=== PATIENT | female | born 1980 | race Caucasian/White ===

== ENCOUNTER 2018-05-04 18:07 | Day surgery (SDC) ==
[2018-05-04 21:08] LABS: BASO# 0.01 X1000 (0.0-0.2); BASO% 0.1 % (0.0-0.8); EOS# 0.01 X1000 (0.0-0.7); EOS% 0.1 % (0.0-10.0); HEMOGLOBIN 14.8 g/dL (12.0-16.0); IMM GRAN# 0.04 X1000 (0.0-0.04); IMM GRAN% 0.3 % (0.0-0.5); LYMPH# 1.68 X1000 (1.2-3.4); LYMPH% 12.2 % (20.5-51.1); MCH 29.8 PG (27-31); MCHC 33.6 g/dL (33-37); MCV 88.7 FL (81-99); MONO# 1.36 X1000 (0.11-0.59); MONO% 9.9 % (1.7-9.3); MPV 11.1 FL (7.4-10.4); NEUT# 10.63 X1000 (1.4-6.5); NEUT% 77.4 % (42.2-75.2); PLT 182 X1000 (130-400); RBC 4.96 XMIL (4.2-5.4); RDW 11.9 % (11.5-14.5); WBC 13.73 X1000 (4.8-10.8)
[2018-05-04 21:17] LABS: URINE SOURCE CLEAN CATCH
[2018-05-04 21:26] LABS: AGAP 14; ALB/GLOB RATIO 2.1; ALBUMIN 4.8 g/dL (3.5-5.0); ALKALINE PHOSPHATASE 67 U/L (32-104); BUN 8 mg/dL (8-22); CALCIUM 8.3 mg/dL (8.8-10.2); CHLORIDE 98 mmol/L (98-107); COSMO 270; CREATININE 0.6 mg/dL (0.5-0.9); ESTIMATED GFR > 60; GLUCOSE 87 mg/dL (70-104); GOT 12 U/L (10-30); GPT 9 U/L (10-36); LIPASE 16 U/L (13-60); POTASSIUM 3.9 mmol/L (3.5-5.1); SODIUM 136 mmol/L (136-145); TCO2 24 mmol/L (25-35); TOTAL BILIRUBIN 0.87 mg/dL (0.20-1.00); TOTAL PROTEIN 7.1 g/dL (6.3-8.3)
[2018-05-04 21:27] LABS: BILIRUBIN URINE NEGATIVE (NEGATIVE); BLOOD URINE MODERATE (NEGATIVE); COLOR YELLOW; GLUCOSE URINE NEGATIVE (NEGATIVE); KETONE URINE 100 mg/dL (NEGATIVE); LEUKOCYTES URINE NEGATIVE (NEGATIVE); NITRITE URINE NEGATIVE (NEGATIVE); PH URINE 5.5; PROTEIN URINE NEGATIVE (NEGATIVE); SP GRAVITY URINE 1.009; TURBIDITY URINE CLEAR (CLEAR); UROBILINOGEN URINE NORMAL (NORMAL)
[2018-05-04 21:28] LABS: UR EPITHELIAL CELLS <10 /HPF (<10); URINE BACTERIA NEGATIVE /HPF; URINE RBC <10 /HPF (<10); URINE WBC <10 /HPF (<10)
[2018-05-04] MEDS ORDERED: MORPHINE IV ONE (21:47)
[2018-05-04] MEDS ORDERED: ZOFRAN IV ONE (21:48)
--- NOTE | 2018-05-04 22:12 | PROVIDER DOCUMENTATION ---
This chart was entered by Ladi Huston Scribe, acting as scribe for Harlan Ochoa MD. HPI-Abdominal Pain/GI Problem - General Chief Complaint: Abdominal Pain Stated Complaint: ABD. PAIN Time Seen by Provider: 05/04/18 18:45 Source: patient Allergies/Adverse Reactions: Patient Allergies Allergy/AdvReac Type Severity Reaction Status Date / Time clarithromycin [From Biaxin] Allergy NAUSEA/VOMI Verified 01/22/14 11:27 TING Home Medications: Home Medication List Medication Instructions Recorded Confirmed Last Taken Type Hydrocodone/APAP 5 mg/325 mg 1 each PO Q4H PRN PRN #0 tablet 01/22/14 Unknown Rx [[place]-5] - History of Present Illness-ABD Nature of Presenting Problems: 37 yof presents to ed w/co abd pain for 2 days. pt went to her pcp, dr. gates, and thought pt was having constipation and gave pt linzess and sent for kub and was it was normal. pt states that pcp said if pain continues to come to er and get ct scan. pt states she had chills from pain but went away. pt has no fever, dizziness, or pain when urinating. Abdominal Pain Onset Location: reports: periumbilical, suprapubic Quality of Pain: reports: sharp Severity in ED: reports: mild Onset/Duration: reports: 2 days ago Timing: reports: still present Review of Systems - Adult - REVIEW OF SYSTEMS - ADULT Constitutional: reports: no symptoms reported Eyes: reports: no symptoms reported Ears, Nose, Mouth & Throat: reports: no symptoms reported Cardiovascular: reports: no symptoms reported Respiratory: reports: no symptoms reported Gastrointestinal: reports: see HPI, abdominal pain (suprapubic and preumbilical) . denies: diarrhea, difficulty swallowing, nausea, vomiting Genitourinary: reports: no symptoms reported Musculoskeletal: reports: no symptoms reported Integumentary: reports: no symptoms reported Neurological: reports: no symptoms reported Psychiatric: reports: no symptoms reported Endocrine: reports: no symptoms reported Hematologic/Lymphatic: reports: no symptoms reported Allergic/Immunologic: reports: no symptoms reported All Other Systems: Reviewed and Negative Past History - Adult - PAST MEDICAL HISTORY-ADULT Review of Records: reports: Old Records Reviewed, Nursing Assessment Review, Medications Reviewed, Social history reviewed & non-contributory. Major Childhood Illnesses: reports: denies history Cardiovascular: reports: denies history Respiratory: reports: denies history Gastrointestinal: reports: denies history Obstetrical/Gynecological: reports: denies history Genitourinary: reports: denies history Musculoskeletal: reports: denies history Neurological: reports: denies history Endocrine/Immune: reports: denies history Other Conditions: reports: denies history - PRIOR SURGERIES/PROCEDURES Surgical/Procedure History: reports: hysterectomy (partial), tonsillectomy, other (kidney sx when a child) - IMMUNIZATION STATUS Childhood Immunizations: See Nurse Assessment Flu Vaccine: See Nurse Assessment - FAMILY HISTORY Family History: reviewed, not pertinent - SOCIAL HISTORY Smoking: non-smoker Substance Use: alcohol Alcohol Use Frequency: rarely Physical Exam-General - PHYSICAL EXAM-ADULT Initial Vital Signs Reviewed: Yes - CONSTITUTIONAL General Appearance: alert, mild distress. negative: severe distress, lethargic, slow to respond - EYES Eyes: PERRL/EOMI - HEAD, EARS, NOSE, MOUTH & THROAT HENMT: normocephalic/atraumatic, moist mucous membranes, normal ENT inspection - NECK Neck: non-tender, full range of motion, supple, normal inspection - RESPIRATORY Respiratory: chest non-tender, lungs clear, normal breath sounds - CARDIOVASCULAR Cardiovascular: normal peripheral pulses, regular rate, rhythm - GASTROINTESTINAL (ABDOMEN) Abdominal Exam: normal bowel sounds, soft, tenderness (suprapubic and preumbilical). negative: non tender, guarding, rigid, rebound - LYMPHATIC Lymphatic: no adenopathy - MUSCULOSKELETAL Back Exam: normal inspection, no CVA tenderness, no vertebral tenderness Extremity: normal range of motion, non-tender, normal inspection - SKIN Integumentary: normal color, normal turgor, warm/dry - NEUROLOGIC Neurologic: clinical abstractor II-XII nml as tested, grossly normal, no motor/sensory deficits - PSYCHIATRIC Psych/Mental Status: normal mood/affect, normal thought content, normal thought process, oriented x 3 Progress - PLAN OF CARE/RESULTS Progress/Plan/Lab Results: Vital Signs - 8 hr 05/04/18 18:22 Temperature 98.2 F Pulse Rate 81 Respiratory Rate 18 Blood Pressure 117/83 O2 Sat by Pulse Oximetry 97 Laboratory Results - last 24 hr 05/04/18 05/04/18 05/04/18 20:51 20:51 21:01 WBC 13.73 H RBC 4.96 Hgb 14.8 Hct 44.0 MCV 88.7 MCH 29.8 MCHC 33.6 RDW Std Deviation 11.9 Plt Count 182 MPV 11.1 H Immature Gran % (Auto) 0.3 Neut % (Auto) 77.4 H Lymph % (Auto) 12.2 L [place] % (Auto) 9.9 H Eos % (Auto) 0.1 Baso % (Auto) 0.1 Immature Gran # (Auto) 0.04 Neut # (Auto) 10.63 H Lymph # (Auto) 1.68 [place] # (Auto) 1.36 H Eos # (Auto) 0.01 Baso # (Auto) 0.01 Sodium 136 Potassium 3.9 Chloride 98 Carbon Dioxide 24 L Anion Gap 14 BUN 8 Creatinine 0.6 Estimated GFR/1.73 m2 > 60 BUN/Creatinine Ratio 13 Glucose 87 Calculated Osmolality 270 Calcium 8.3 L Total Bilirubin 0.87 AST 12 ALT 9 L Alkaline Phosphatase 67 Total Protein 7.1 Albumin 4.8 Globulin 2.3 Albumin/Globulin Ratio 2.1 Lipase 16 Urine Source CLEAN CATCH Urine Color YELLOW Urine Turbidity CLEAR Urine pH 5.5 Ur Specific [place] 1.009 Urine Protein NEGATIVE Ur Glucose (Stick) NEGATIVE Ur Ketones (Stick) 100 A Urine Blood MODERATE A Urine Nitrite NEGATIVE Urine Bilirubin NEGATIVE Urobilinogen Dipstick NORMAL Urine Leukocytes NEGATIVE Urine WBC (Auto) <10 Urine RBC (Auto) <10 U Epithel Cells (Auto) <10 Urine Bacteria (Auto) NEGATIVE Orders Category Date Time Status NPO Diet 05/04/18 18:25 Active CBC WITH DIFF [HEME] Stat Lab 05/04/18 20:51 Completed COMPREHENSIVE METABOLIC PANEL [CHEM] Stat Lab 05/04/18 20:51 Completed LIPASE [CHEM] Stat Lab 05/04/18 20:51 Completed URINALYSIS [URINALYSIS] Stat Lab 05/04/18 21:01 Completed Abd Pain/OB <20 weeks Stat Oth 05/04/18 18:25 Ordered Result Diagrams: 05/04/18 20:51 05/04/18 20:51 - CT/MRI 1 CT Study: Abdomen, Pelvis CT Results: acute appendicitis per radiologist report, no perforation or abscess - CONSULTS/PCP/HOSPITALIST Notification #1 *Consult/PCP/Hospitalist*: Dr. Alexandra, surgeon coke oven mason Time Discussed: 23:00 Consult Disposition: Will see in ED, Admit Departure - Departure Date of Disposition Decision: 05/04/18 Time of Disposition Decision: 23:10 DIAGNOSIS: Acute appendicitis Qualifiers: Acute appendicitis type: unspecified acute appendicitis type Qualified Code(s): K35.80 - Unspecified acute appendicitis Disposition: ADMITTED INPATIENT 09 Certified Medical Emergency: Emergent Condition: Stable Referrals and Follow-Ups: Callum Gates MD [Primary Care Provider] - - Critical Care Note This patient required my direct & personal management of CC.: No Attestation - Physician/ EFRAIN Attestation Patient care was provided by Advanced Practice Provider:: No The physician spent face to face time with patient:: Yes Advanced Practice Provider documentation review:: Supervising physician onsite and consulted in the evaluation and care of this patient. The physician did have a face to face encounter with the patient. This chart was documented by the indicated scribe, (Ladi Huston Scribe) and accurately reflects the services I performed and decisions made by me, Harlan Ochoa MD, as attested by the provider's signature.
[2018-05-04] MEDS ORDERED: ZOSYN 3.375 GM in NS 50 ML IV ONE (23:03)
--- NOTE | 2018-05-04 23:03 | Diag Imaging Result Doc PS360 ---
CT ABD/PELVIS W/IV CONT ONLY - 05/04/2018 INDICATION: abdominal pain COMPARISON: 07/16/2011 FINDINGS: The lung bases are clear and the heart size is normal. The liver, gallbladder, spleen, pancreas, adrenals, and kidneys are normal. 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 The vermiform appendix appears to be dilated, enhancing, and probably fluid-filled. This measures about 11 mm or more. There is a small amount of free fluid at the right side of the pelvis. Uterus is absent. Urinary bladder and rectum are normal. There are moderate degenerative changes of the spine. No acute or suspicious bony lesion. IMPRESSION: Acute appendicitis. Small amount of pelvic free fluid. This report was discussed with Dr. Ochoa on 05/04/2018 at 11:00 PM and was readback. This exam was performed using automated exposure control, adjustment of mA or kV according to patient size, and/or use of iterative reconstruction technique Electronically signed by Balwinder Mejia 05/04/2018 11:01 PM
[2018-05-05] MEDS ORDERED: ZOFRAN IV PRN (00:02)
[2018-05-05] MEDS ORDERED: NS 1,000 ML IV SCH (00:15)
--- NOTE | 2018-05-05 00:47 | HISTORY AND PHYSICAL ---
CHIEF COMPLAINT: Abdominal pain. HISTORY OF PRESENT ILLNESS: This is a 37-year-old female with a 2-day history of mid abdominal pain that radiates down to the lower abdomen, worsened with walking around, lessened with lying still without nausea, vomiting, or fever, but she did have some chills a day ago, that have subsided. PAST MEDICAL HISTORY: None. PAST SURGICAL HISTORY: Partial hysterectomy, tonsillectomy, and kidney surgery. ALLERGIES: Clarithromycin. HOME MEDICATIONS: None. FAMILY HISTORY: Reviewed and noncontributory. SOCIAL HISTORY: Negative for tobacco or illicit drug use. She drinks alcohol occasionally. She works as a social media marketing manager. REVIEW OF SYSTEMS: Ten systems reviewed and negative except as noted above. PHYSICAL EXAMINATION: VITAL SIGNS: Temperature 98.2 degrees, pulse 81, respirations 18, blood pressure 117/83, O2 saturation 97%. GENERAL: Well-developed, well-nourished female, in no distress, looks her stated age. HEENT: Normocephalic, atraumatic. Extraocular muscles intact. Pupils equal, round, reactive to light. Sclerae anicteric. Moist mucous membranes. NECK: Supple. No thyromegaly. CARDIOVASCULAR: Regular rate and rhythm. RESPIRATORY: Bilateral breath sounds. No work of breathing. GASTROINTESTINAL: Soft, nondistended. No organomegaly or mass. She is tender in the mid abdomen and more so in the right lower quadrant. No rebound or guarding. EXTREMITIES: No clubbing, cyanosis, or edema. SKIN: Warm and dry. No rash. MUSCULOSKELETAL: Moves all extremities equally and well. LABORATORY: White cell count 13.7, hemoglobin 14.8, hematocrit 44. Electrolytes reviewed and unremarkable. Urinalysis negative. IMAGING: Abdomen and pelvis CT scan shows a dilated appendix which is somewhat enhancing and fluid-filled, and there is a small amount of free fluid in the right side of the pelvis. ASSESSMENT/PLAN: Acute appendicitis with small amount of pelvic free fluid. We will start her on Zosyn and plan laparoscopic appendectomy in the morning. I discussed the risks and benefits with her, including bleeding, infection, injury to surrounding organs such as the intestines or bladder, and other imponderables. She understands and agrees to proceed. cc: Luke Alexandra MD
[2018-05-05] MEDS: MORPHINE IV PRN ×3 (01:26→09:00)
[2018-05-05] MEDS: ZOSYN 3.375 GM in NS 50 ML IV SCH ×2 (05:09→12:14)
[2018-05-05] MEDS ORDERED: SENSORCAINE-MPF 0.5%/EPI 1:200,000 ONE (12:41)
[2018-05-05] MEDS ORDERED: LR 1,000 ML ONE (12:41)
[2018-05-05] MEDS ORDERED: VERSED ONE (12:49)
[2018-05-05] MEDS ORDERED: FENTANYL ONE (12:56)
[2018-05-05] MEDS ORDERED: DIPRIVAN 1% ONE (12:56)
[2018-05-05] MEDS ORDERED: XYLOCAINE-MPF 2% ONE (12:57)
[2018-05-05] MEDS ORDERED: ROBINUL ONE ×2 (12:57→13:46)
[2018-05-05] MEDS ORDERED: ZEMURON ONE (12:59)
[2018-05-05] MEDS ORDERED: ZOFRAN ONE (13:30)
[2018-05-05] MEDS ORDERED: DECADRON ONE (13:30)
[2018-05-05] MEDS ORDERED: MORPHINE ONE (13:30)
[2018-05-05] MEDS ORDERED: NEOSTIGMINE ONE (13:46)
[2018-05-05] MEDS ORDERED: DILAUDID ONE (14:27)
[2018-05-05 15:08] VITALS: BP 105/62
[2018-05-05] MEDS ORDERED: NORCO-10 PO PRN (15:08)
--- NOTE | 2018-05-05 20:31 | OPERATIVE NOTE ---
PROCEDURE DATE: 05/05/2018 PREOPERATIVE DIAGNOSIS: Acute appendicitis. POSTOPERATIVE DIAGNOSIS: Acute appendicitis. OPERATION: Laparoscopic appendectomy. SURGEON: Luke Alexandra MD CIRCUIT COURT CLERK: Santos Aguiar MS4 ANESTHESIA: General. ESTIMATED BLOOD LOSS: 10 mL COMPLICATIONS: None apparent. SPECIMENS: Appendix. FINDINGS: The appendix was acutely inflamed. There was no evidence of abscess or perforation. PROCEDURE: She was brought to the operating room and placed supine on the table. General anesthesia was induced. She was prepped and draped in the usual sterile fashion. Marcaine 0.25% with epinephrine was used to anesthetize our incisions. A 12 mm incision was made below the umbilicus. The fascia was exposed and incised sharply. Entry into the peritoneal cavity was obtained under direct vision with the OptiFunambol device. Pneumoperitoneum was established. The camera was inserted. There was no evidence of injury to underlying structures. Two 5 mm incisional ports were placed under direct vision, one in the left lower quadrant and one in the suprapubic midline. She was placed in Trendelenburg with left rotation. A few adhesions of the cecum and omentum were taken down in the right lower quadrant with hook cautery. I then found the terminal ileum entering the cecum in the appendix, lying alongside the terminal ileum and extending down into the pelvis. The appendix was acutely inflamed. It was adherent to the right fallopian tube and ovary, but I was able to easily separate these 2 bluntly. The appendix and its mesentery were lifted up superiorly. A window was created through the appendiceal mesentery with the [place] forceps at the base of the appendix. The base of the appendix was then transected with an Endo BUSHRA stapler. The appendiceal mesentery was transected in the same fashion. The appendix was put in an EndoCatch bag. I then inspected the staple lines. There was minimal bloody oozing from the mesentery staple line. I cauterized this with hook cautery and that easily controlled it. I then irrigated with saline and suctioned it out. There were no signs of any ongoing bleeding or injuries. The bag and appendix were brought out through the umbilical port site. The abdomen was desufflated. The ports were removed. The umbilical fascia was closed with a [id number] 0 Vicryl. The skin was closed with a running 4-0 subcuticular Monocryl and Steri- Strips. There were no apparent complications. She was awakened in stable condition and transferred to the recovery room. cc: Luke Alexandra MD [facility] [facility]
== END 2018-05-05 16:43 | disposition home or self-care (01) ==
LOC: 4N 18:07 → ED 18:07 → MED 18:08
PROVIDERS: ATTEND Surgery
CPT/HCPCS: 74000; 74018; 74177; 80053; 81001; 83690; 85025; 86850; 86900; 86901; 88304; 96365; 96375; 99285; J1100; J1170; J2250; J2270; J2405; J2543; J3010; J7030; J7120; Q9967